=== PATIENT | male | born 1995 | race Caucasian/White ===

== ENCOUNTER 2019-06-25 05:57 | Day surgery (SDC) | payer OTHER ==
[2019-06-24 11:53] VITALS: BMI 30.3
--- NOTE | 2019-06-25 07:29 | HP ---
HISTORY OF PRESENT ILLNESS: Mr. Hernandez is a 24-year-old man here today to discuss severe lower back and lower extremity pain as well as severe radicular neck pains and weakness in bilateral hands along with some numbness. 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 He has treated this with injections, physical therapy and medications, but continues to have progressive weakness and numbness. As such, he hopes to have a discussed regarding surgical correction. PAST MEDICAL HISTORY: Significant for anxiety. CURRENT MEDICATIONS: 1. Xanax. 2. Ibuprofen. ALLERGIES: NO KNOWN DRUG ALLERGIES. PAST SURGICAL HISTORY: Lumbar decompression. PHYSICAL EXAMINATION: The patient is alert and oriented x3. Gait is antalgic and slowed. Lower extremity motor exam is normal. Upper extremity motor exam is normal. He does have restricted range of motion of the cervical spine. ASSESSMENT: Cervical radiculopathy. PLAN: Dr. Cool met with the patient, reviewed imaging, and advocated for C5-C7 ACDF. He explained to the patient the risks, benefits, and alternatives to the procedure. The patient expressed understanding and elected to move forward with surgery as discussed. I do believe the patient is mentally competent and capable of making medical decisions for himself. We will move forward with surgery as planned. Job ID: [id number]
[2019-06-25] MEDS ORDERED: Oxymetazoline HCl 0.05% ( 15 ML ) ONE (08:07)
[2019-06-25] MEDS ORDERED: Midazolam HCl 2 mg/2 ml Vial ONE (08:09)
[2019-06-25] MEDS ORDERED: Fentanyl 100 MCG/2 ML VIAL ONE (08:50)
[2019-06-25] MEDS ORDERED: HYDROmorphone 0.5 MG/0.5 ML SYRINGE ONE (08:50)
[2019-06-25] MEDS ORDERED: Lidocaine 1% PF 5 ML VIAL ONE (09:46)
[2019-06-25] MEDS ORDERED: Glycopyrrolate 0.2 MG/ML 5 ML SYRINGE ONE (09:46)
[2019-06-25] MEDS ORDERED: Ondansetron PF 4 MG/2 ML Vial ONE (09:46)
[2019-06-25] MEDS ORDERED: PHENYLEPHRINE-NS 100 MCG/ML 10 ML SYRINGE ONE (09:46)
[2019-06-25] MEDS ORDERED: ePHEDrine/0.9% NaCl/PF SYRINGE 50 mg/10 ml ONE (09:46)
[2019-06-25] MEDS ORDERED: Rocuronium Bromide 10 MG/ML (10ML VIAL) ONE (09:46)
[2019-06-25] MEDS ORDERED: Ketorolac Tromethamine 30 MG/ML VIAL ONE (09:46)
[2019-06-25] MEDS ORDERED: PROPOFOL 200 MG/20 ML VIAL ONE (09:46)
[2019-06-25] MEDS ORDERED: Dexamethasone 20 MG/5 ML VIAL ONE (09:46)
[2019-06-25] MEDS ORDERED: Tamsulosin HCl 0.4 MG CAP ONE (11:34)
--- NOTE | 2019-06-25 11:38 | OP ---
DATE OF PROCEDURE: 06/25/2019 MEDIA SERVICES DIRECTOR: Abdulaziz Dominguez PA-C. INDICATION: Pain. DIAGNOSES: Cervical radiculopathy and cervical stenosis. PROCEDURES PERFORMED: Anterior cervical discectomy and fusion at C5 through C7. DESCRIPTION OF PROCEDURE: The patient was brought into the operating room and placed under general anesthesia. He was placed on table in a supine position. A transverse incision was planned over the lateral aspect of the neck on the right. After prepping and draping and after an appropriate perioperative pause, the incision was created. The underlying platysma muscle was identified and incised. A blunt tissue plane anterior to the sternocleidomastoid muscle was used to gain access to the prevertebral space. Self-retaining retractors were then placed and the C-arm images were obtained to confirm the appropriate level. An annulotomy was performed in the C6-C7 disk space and all the disk material as well as anterior posterior osteophytes were removed. After decompressing that segment, a 7-mm lordotic PEEK cage packed with allograft and autograft material was placed within the interbody space. We then redirected our attention to the level above at C5-C6, where an annulotomy was performed again. The disk material as well as anterior and posterior osteophytes were removed. After completely decompressing that segment, a 7 mm lordotic PEEK cage packed with allograft and autograft material was placed within the interbody space. An anterior cervical plate was then fashioned to the front of spine and secured with a total of 6 screws. Midline and lateral structures were inspected and found to be free from significant trauma. The wound was irrigated. Hemostasis was maintained throughout. The wound was then closed in anatomic layers and a pressure dressing was applied. There were no known procedural complications. Job ID: [id number]
== END 2019-06-25 14:05 | disposition home or self-care (01) ==
LOC: SDC 05:57
PROVIDERS: ATTEND Neurological Surgery
PROC: 0RG2070 Fusion of 2 or more Cervical Vertebral Joints with Autologous Tissue Substitute, Anterior Approach, Anterior Column, Open Approach (ICD-10-PCS; principal; 2019-06-25)
PROC: 0RG20A0 Fusion of 2 or more Cervical Vertebral Joints with Interbody Fusion Device, Anterior Approach, Anterior Column, Open Approach (ICD-10-PCS; principal; 2019-06-25)
PROC: 0RT30ZZ Resection of Cervical Vertebral Disc, Open Approach (ICD-10-PCS; principal; 2019-06-25)
DX: M54.12 Radiculopathy, cervical region (principal); M48.02 Spinal stenosis, cervical region; F41.9 Anxiety disorder, unspecified; E66.9 Obesity, unspecified; Z68.30 Body mass index [BMI] 30.0-30.9, adult; Z79.899 Other long term (current) drug therapy
CPT/HCPCS: 76000; C1713; C1776; J0690; J1100; J1170; J1885; J2001; J2250; J2405; J2704; J3010